=== PATIENT | female | born 1985 | race Caucasian/White ===

== ENCOUNTER 2022-05-16 12:39 | Outpatient (CLI) | payer BC, SELFPAY ==
[2022-05-16 14:02] LABS: Albumin* 4.2 g/dL (3.3-5.0); Chloride* 107 mmol/L (96-114)
[2022-05-16 14:03] LABS: Potassium* 4.7 mmol/L (3.6-5.1); Sodium* 141 mmol/L (135-149)
[2022-05-16 14:05] LABS: Cholesterol* 197 mg/dL (90-199); Creatinine* 0.6 mg/dL (0.5-1.5); Estimated Glomerular Filt Rate 119 ml/min
[2022-05-16 14:06] LABS: Alanine Aminotransferase* 45 U/L (4-35); Alkaline Phosphatase* 56 U/L (40-150); Aspartate Amino Transferase* 47 U/L (12-35); Bilirubin Total* 0.4 mg/dL (0.1-1.5); Blood Urea Nitrogen* 16 mg/dL (5-24); Calcium* 8.7 mg/dL (8.4-10.6); Carbon Dioxide* 26 mmol/L (20-32); Glucose* 111 mg/dL (60-115); HDL Cholesterol* 68 mg/dL (>=50); LDL Cholesterol Calculated 110 mg/dL (<100); Total Protein* 6.8 g/dL (6.0-8.3); Triglycerides* 97 mg/dL (40-149)
== END 2022-05-16 12:40 | disposition home or self-care (01) ==
PROVIDERS: PCP Emergency Medicine; Visit Provider Emergency Medicine
DX: R73.03 Prediabetes (principal); R03.0 Elevated blood-pressure reading, without diagnosis of hypertension; R74.01 Elevation of levels of liver transaminase levels; Z13.6 Encounter for screening for cardiovascular disorders
CPT/HCPCS: 80053; 80061

== ENCOUNTER 2023-06-13 10:48 | Outpatient (CLI) | payer OTHER, SELFPAY ==
--- NOTE | 2023-06-13 11:00 | CRLHL7_ITS ---
For Patients: As a result of the Century Cures Act, medical imaging exams and procedure reports are released immediately into your electronic medical record. You may view this report before your referring provider. If you have questions, please contact your health care provider. Indication: Chronic sinusitis Technique: Noncontrast CT of the paranasal sinuses. Coronal and sagittal reformats. Bone and soft tissue algorithms. Comparison: No relevant comparison studies available at this institution. Findings: Moderate lobulated mucosal thickening throughout the right greater than left sphenoid sinuses, narrowing the bilateral sphenoethmoidal recesses. Minimal scattered mucosal thickening within the inferior maxillary sinuses and left frontal recess. No other significant paranasal sinus mucosal thickening. No air-fluid level. Smooth 2.5 mm rightward nasal septal deviation with shallow bone spur slightly deforming the right inferior turbinate. Small bilateral middle jean lamella. No paradoxical turbinates. Orbits and included intracranial structures are unremarkable for technique. Clear mastoid air cells. No suspicious dental disease or aggressive osseous lesions. No concerning findings identified in the regional soft tissues. IMPRESSION: 1. Moderate lobulated mucosal thickening throughout the right greater than left sphenoid sinuses, narrowing the sphenoethmoidal recesses. 2. Minimal mucosal thickening along the inferior maxillary sinuses and left frontal recess. 3. Mild rightward nasal septal deviation with small bilateral middle jean lamella. Please note that all CT scans at this facility use dose modulation, iterative reconstruction, and/or weight-based dosing when appropriate to reduce radiation dose to as low as reasonably achievable. Dictated by Blanche Alcala MD @ 06/13/2023 1:58:27 PM (Electronically Signed)
== END 2023-06-13 10:49 | disposition home or self-care (01) ==
PROVIDERS: PCP Emergency Medicine; Visit Provider Otolaryngology
DX: J32.9 Chronic sinusitis, unspecified (principal); J32.0 Chronic maxillary sinusitis; J34.2 Deviated nasal septum
CPT/HCPCS: 70486

== ENCOUNTER 2023-07-31 19:14 | Outpatient (CLI) | payer OTHER, SELFPAY ==
--- OUTSIDE RECORDS SUMMARY | 2023-07-31 19:17 | XMS_ITS | Data Portability ---
Author Name Unknown Address [address] [place] [id number] Phone [phone] Organization [place] [facility], Main Office Address [address] [place] [address] Assessment Encounter Date Assessment Date Assessment LastModified by Organization Details LastModified Time 05/29/2022 05/29/2022 1. 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 We discussed the pathology again and the potential that it may change the outcome of adjuvant therapy if this were to be a microcystic adnexal carcinoma Mohs case number M [id number]? 1 4 9 Area cleansed with alcohol. A nerve block was performed with 1% lidocaine with epinephrine. Small amounts of lidocaine were injected into the actual vermilion border during the Mohs day Stage I: No curette debulking performed half a millimeter margin taken to the deep dermis revealing marked inflammation and a few strands consistent with either infiltrative basal cell most likely or possibly desmoplastic trichofolliculoma. I do not see the biphasic pattern of a microcystic adnexal carcinoma. Stage II: Peripheral rim half a millimeter wide abutting the deep dermis revealing small strands and decreasing inflammation along the inferior aspect which would be 6:00 and 5:00 and 7:00. Stage III: No debulking performed peripheral rim taken from 9:00 crossing of the vermilion border to 3:00 half a millimeter margins revealing a few faint strands almost normal collagen developing in this aspect. Stage IV: Another half millimeter taken further into the mucosal region further past the vermilion border. From 9:00 to 3:00 revealing by the last section essentially normal. Collagen with just mild inflammation. Total stages for total sections for final defect 0.8 cm Verbally with photographs reviewed the relatively superficial nature of the Mohs surgery. We discussed potentially excising this to depth and performing a flap versus allowing granulation to occur and reassessing with possible later revision if it does not heal as we help. After reviewing this in great detail in the presence of her who accompanied her during the preoperative consultation we have chosen allowed to granulate. Typewritten, and verbal wound care instructions given follow-up in [place] in 6 weeks Total stages 4 total sections 4, granulation for closure [id number] Not available 05/29/2022 23:39:24 Plan of Treatment Reminders Order Date Submit Date Provider Last Modified By Organization Details Last Modified Time Details Appointments None record ed. Lab None record ed. Referral None record ed. Procedures None record ed. Surgeries None record ed. Imaging None record ed. Medication Orders None record ed. Patient TargetsNo targets recorded. Patient InstructionsNo instructions recorded. Reason for Referral None Reported. Results Created Date Observation Date Name Description Value Unit Range Abnormal Flag LastModifiedBy Organization Detail LastModifiedTime Result Notes None recorded. Medical Equipment None Reported. Medications Name Sig Start Date Stop Date Status Note LastModified by Organization Details LastModified Time amoxicillin 500 mg capsule TAKE 1 CAPSULE BY MOUTH THREE TIMES DAILY FOR 30 DAYS active Not Available Not Available No t Available ondansetron HCl 4 mg tablet TAKE 1 TABLET BY MOUTH EVERY 6 HOURS NEEDED active Not Available Not Available No t Available prednisone 20 mg tablet active Not Available Not Available No t Available penicillin V potassium 500 mg tablet TAKE 1 TABLET BY MOUTH TWICE DAILY FOR 10 DAYS active Not Available Not Available No t Available oseltamivir 75 mg capsule active Not Available Not Availabl e Not Available Ventolin HFA 90 mcg/actuation aerosol inhaler INHALE 2 PUFFS INTO LUNGS EVERY 6 HOURS NEEDED FOR SHORTNESS OF BREATH OR WHEEZING active Not Available Not Available No t Available escitalopram 10 mg tablet TAKE 1 TABLET BY MOUTH ONCE DAILY active Not Available Not Available No t Available Vitals None Recorded Social History None recorded. Functional Status None recorded. Mental Status None recorded. Family History Nothing Reported. Medical History No medical history recorded. Gynecological HistoryNo gynecological history recorded. Obstetrics History GPAL:G 0 P 0 0 0 0 Past Encounters Encounter ID Performer Location Encounter Start Date Encounter Closed Date Diagnosis/Indication [id number] Jhonny Jansen MD Main Office [address] [address] 05/29/2022 11:11:10 06/06/2022 23:29:34 Basal cell carcinoma of lower lip Health Concerns Section Related Observation LastModified by Organization Detai ls LastModified Time None Recorded Concern Status LastModified by Organization Details LastModified Time None Recorded Advance Directives Directive None Recorded Payers Encounter Date Sequence Insurance Name Policy Number Policy Solorzano Covered Member ID Solorzano Member ID Guarantor Name 05/29/2022 1 [id number]MED[place] - [place]MO) [id number] Jeanna Licea [id number] Jeanna Licea Notes Date Note Type Note Provider Name and Address Organization Details Recorded Time 2 text/html HPI Notes: 39-year-old female presents today for Mohs surgery of a biopsy-proven basal cell carcinoma 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 On 2 previous biopsies no differentiation could be obtained It is on the left upper cutaneous lip. Her past medical history family history and social history are unchanged in the interim since her preoperative visit in [place] Jhonny Jansen MD [address] [place], [address], [facility] 06/06/2022 23:28:35 OBGyn Episode No OBEpisode recorded.
--- OUTSIDE RECORDS SUMMARY | 2023-07-31 19:17 | XMS_ITS | Clinical Summary ---
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 0 Active escitalopram oxalate (LEXAPRO) 20 mg tabletIndication s:Anxiety,Depres carito, recurrent (HC) Take 1 Tablet (20 mg) by mouth once daily. 100 Tablet 3 07/30/2023 Active escitalopram oxalate (LEXAPRO) 20 mg tabletIndication s:Anxiety,Depres carito, recurrent (HC) Take 1 Tablet (20 mg) by mouth once daily. 100 Tablet 3 02/28/2023 07/30/2023 Discontinued (*Medication adjustment) Active Problems Problem Noted Date Diagnosed Date Depression, recurrent 01/10/2023 Basal cell carcinoma (BCC) of skin of lip 2022 Overview: Managed by Dermatology. Anxiety 09/28/2017 Resolved Problems Problem Noted Date Diagnosed Date Resolved Date (normal spontaneous vaginal delivery) 11/21/2018 01/10/2023 care and examinat ion of lactating mother 11/21/2018 01/10/2023 Anemia affecting in third trimester 11/21/19 19 01/10/2023 Insulin controlled gestation al diabetes mellitus (GDM) during 09/11/2018 01/11/20 Overview: Needs BPP/NST and growth scan Palpitations 09/28/2017 01/10/2023 Encounters Date Type Department Care Team Description 07/30/2023 Telephone [facility] [address] [place] [address] Paula Melendez MD Medication Management (/escitalopram oxalate (LEXAPRO) 20 mg tablet /) from Last 3 Months Immunizations Name Administration Dates Next Due Influenza RIV4 (Age 18+ Years) PRESERV FREE 05/11 Influenza, IIV4 04/03/2022,06/07/2021,05/13/2018 Tdap 12/09/2020,09/11/2018 Family History Medical History Relation Name Comments Good Health Brother Gerry Ear Disease Daughter 1 Jennifer Recurrent ear i nfections COPD Father Alcoholism Maternal Grandfather Dementia Maternal Grandmother Anxiety disorder Mother Other Mother Vertigo Blindness Paternal Grandfather Hypertension Paternal Grandfather Cancer-breast Paternal Grandmother Cancer-colon No Family History Cancer-ovarian No Family History Relation Name Status Comments Brother Gerry Alive Daughter 1 Jennifer Alive Daughter 2 Deirdre Alive Father (Age 53) Maternal Grandfather Maternal Grandmother Mother Alive Paternal Grandfather Paternal Grandmother Alive Social History Tobacco Use Types Packs/Day Years Used Date Smoking Tobacco: Never Smokeless Tobacco: Never Tobacco Cessation:Counseling Given: Yes Alcohol Use Standard Drinks/Week Comments Yes 0 (1 standard drink = 0.6 oz pure alcohol) 1-2 days a week; 2-4 drinks at a time PHQ-2 Answer Date Recorded PHQ-2 TOTAL SCORE 1 02/28/2023 Social Connections Answer Date Recorded Frequency of Communication with Friends and Fami ly 0 01/10/2023 Financial Resource Strain Answer Date R ecorded Difficulty of Paying Living Expenses 3 01/10/2023 Difficulty of Paying Living Expenses Not on file 01/10/2023 Food Insecurity Answer Date Recorded Worried About Running Out of Food in the Last Ye ar 1 01/10/2023 Transportation Needs Answer Date Record ed Lack of Transportation (Medical) 1 01/10/2023 Housing Stability Answer Date Recorded Unable to Pay for Housing in the Last Year 1 01/10/2023 Sex and Gender Information Value Date Recorded Sex Assigned at Not on file Gender Identity Not on file Sexual Orientation Not on file Obstetrics History Para Term AB IAB SAB Ectopic Multiple Livin g Live Births 3 2 2 0 1 0 0 0 0 2 2 Date Outcome GA Total Labor Labor/2nd/3rd Weight Sex Delivery Anes PTL Diane A1 A5 Name Cl in 06/11 AB ELECTIVE AB 11/21 Term 39w 3d 0h 07m 3.45 kg (7 lb 9.7 oz) F Vag Epidu ral Gabriela ng 6 9 Santi Todd ns Delivery Location:[facility]) 02/01 Term F Vag Gabriela ng Jennifer Last Filed Vital Signs Vital Sign Reading Time Taken Comments Blood Pressure 126/78 02/28/2023 10:52 AM CDT Pulse 63 02/28/2023 10:52 AM CDT Temperature 36.5 ??C (97.7 ??F) 11/23/2018 1 2:04 PM CDT Respiratory Rate 16 11/23/2018 12:0 4 PM CDT Oxygen Saturation 98% 02/28/2023 10: 52 AM CDT Inhaled Oxygen Concentration - - Weight 118.3 kg (260 lb 12.8 oz) 2022 10:52 AM CDT Height 163 cm (5' 4.17) 02/28/2023 10: 52 AM CDT Body Mass Index 44.53 02/28/2023 10:52 AM CDT Plan of Treatment Health Maintenance Due Date Last Done Comments COVID-19 vaccine series ( season) 2023 10/29/2020, 10/08/2020 Influenza for age 9-49 02/09/2023 2, 06/07/2021, 05/26/2020, Additional history exists Pap test for age 21-65 08/05/2023 1, 08/05/2020, 04/12/2018, Additional history exists BMI (ht and wt on same day) for age 18+ 02/29/2024 02/28/2023, 01/10/2023, 01/28/2019, Additional history exists Depression screening for age 12+ 02/29/2024 02/28/2023, 01/10/2023, 01/28/2019, Additional history exists Tetanus booster 12/09/2030 12/09/2020, 09/11/2018 HIV for age 15-65 Completed 04/12/2018 Tdap Completed 12/09/2020, 09/11/2018 Hepatitis C screening for age 18-79 Completed 01/10/2023 Pneumococcal series for age 6-64 Aged Out No longer eligible based on patient's age to complete this topic Advance Directives Latest Code Status on File Code Status Date Activated Date Inactivated Comments Full Code 11/20/2018 6:19 PM 11/22/2018 5:46 PM Care Teams Tape Control 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
--- NOTE | 2023-08-14 12:53 | W.PM.SLEEP ---
Sleep Study Details Details Interpreting Provider: Donell Date of Sleep Study: 07/31/23 Sleep Study Details: STUDY TYPE:? Home unattended ? BMI:? 45.5 ORDERING PROVIDER:? Donell INDICATION:? Concerns about sleep apnea ? SLEEP SUMMARY:? 391.7 minutes monitored RESPIRATORY SUMMARY:? AHI 13, left lateral 4.1, supine 13.7, right lateral 7.3 Low oxygen 78 1.8% of study oxygen less than 90% Snoring 20.9% PERIODIC LIMB MOVEMENTS OF SLEEP:? Not recorded during home study CARDIAC:? Range 51-105, mean 67.6 IMPRESSION:? Mild obstructive sleep apnea RECOMMENDATION: Treatment options include AutoSet CPAP, dental appliance, weight loss and/or airway expansion surgery. If patient is symptomatic would recommend trial of CPAP.
== END 2023-07-31 19:15 | disposition home or self-care (01) ==
PROVIDERS: PCP Emergency Medicine; Visit Provider Otolaryngology
DX: G47.33 Obstructive sleep apnea (adult) (pediatric) (principal)
CPT/HCPCS: 95806

== ENCOUNTER 2023-08-28 08:47 | Outpatient (CLI) | payer OTHER, SELFPAY | END 2023-08-28 08:48 | disposition home or self-care (01) | PROVIDERS: PCP Emergency Medicine; Visit Provider Family Medicine | DX: R74.01 Elevation of levels of liver transaminase levels (principal); R73.03 Prediabetes; E66.9 Obesity, unspecified; Z13.29 Encounter for screening for other suspected endocrine disorder | CPT/HCPCS: 80053; 84443 ==

== ENCOUNTER 2023-09-12 07:09 | Outpatient (CLI) | payer OTHER, SELFPAY ==
--- NOTE | 2023-09-12 07:15 | US_ITS ---
Patient: CHHAYA SHI Facility:?[facility] Patient ID:?[id number] Site Patient ID:?[id number]. Site :?[id number] Study:?US-Abdomen RUQ-09/12/2023 7:50:20 AM Ordering Physician:GENNARO OCONNOR Final Report: INDICATION: Elevation of levels of liver transaminase levels TECHNIQUE: Ultrasound abdomen limited. Sonographic images of the right upper quadrant were obtained using gutierrez-scale and color Doppler images. COMPARISON: None FINDINGS: Liver: Echogenic consistent with fatty infiltration.. No masses. No intrahepatic biliary dilatation. Gallbladder: No stones or sludge. Normal wall thickness. No pericholecystic fluid. Common bile duct: 4 mm. Pancreas: Normal. Right kidney: Normal in size. Normal echotexture and cortex. No suspicious masses, stones, or hydronephrosis. Vasculature: Proximal abdominal aorta and IVC are normal. IMPRESSION: Hepatic steatosis. Dictated by Deion Hernandez MD @ 09/12/2023 12:00:36 PM Signed by:?Deoin Hernandez MD @09/12/2023 12:00:36 PM (Electronic Signature)
== END 2023-09-12 07:10 | disposition home or self-care (01) ==
LOC: US 07:09
PROVIDERS: PCP Family Medicine; Visit Provider Family Medicine
DX: R74.01 Elevation of levels of liver transaminase levels (principal); K76.0 Fatty (change of) liver, not elsewhere classified
CPT/HCPCS: 76705

== ENCOUNTER 2024-09-01 15:38 | Outpatient (CLI) | payer BC, SELFPAY | END 2024-09-01 15:39 | disposition home or self-care (01) | PROVIDERS: PCP Family Medicine; Visit Provider Family Medicine | DX: K76.0 Fatty (change of) liver, not elsewhere classified (principal); Z13.21 Encounter for screening for nutritional disorder; Z13.29 Encounter for screening for other suspected endocrine disorder | CPT/HCPCS: 80053; 80061; 82306; 84443 ==

== ENCOUNTER 2024-10-21 21:06 | Outpatient (CLI) | payer BC, SELFPAY ==
--- NOTE | 2024-10-28 12:35 | W.PM.SLEEP ---
Sleep Study Details Details Interpreting Provider: Donell Date of Sleep Study: 10/21/24 Sleep Study Details: STUDY TYPE:? Hospital-based attended ? BMI:? 45.5 ORDERING PROVIDER:? Donell INDICATION:? Concerned about sleep apnea ? SLEEP SUMMARY:? 342 minutes total sleep time RESPIRATORY SUMMARY:? Mean oxygen awake 93 asleep 92 minimum 80. 16.1 minutes oxygen was between 80 and 88% AHI 10.2 per CMS guideline, 21.1 per rule 1A. Minimal positional differences. PERIODIC LIMB MOVEMENTS OF SLEEP:? Index 11.4, index with arousal 2.6 CARDIAC:? Awake 66, asleep 63. Premature atrial contractions were noted IMPRESSION:? Mild obstructive sleep apnea with significant desaturations. PACs were noted. RECOMMENDATION: Weight loss is recommended. For the obstructive sleep apnea would recommend trial of AutoSet CPAP or a dental appliance.
== END 2024-10-21 21:07 | disposition home or self-care (01) ==
LOC: SLEEP 21:06
PROVIDERS: PCP Family Medicine; Visit Provider Otolaryngology
DX: G47.33 Obstructive sleep apnea (adult) (pediatric) (principal)
CPT/HCPCS: 95810

== ENCOUNTER 2024-12-03 09:21 | Outpatient (CLI) | payer BC, SELFPAY | END 2024-12-03 09:22 | disposition home or self-care (01) | PROVIDERS: PCP Family Medicine; Referring Provider Family Medicine; Visit Provider Family Medicine | DX: K76.0 Fatty (change of) liver, not elsewhere classified (principal); R73.03 Prediabetes; Z79.899 Other long term (current) drug therapy | CPT/HCPCS: 80053; 80061; 82306 ==

== ENCOUNTER 2025-04-30 14:00 | Outpatient (CLI) | payer BC, SELFPAY | END 2025-04-30 14:01 | disposition home or self-care (01) | LOC: NFLDREF 05-06 07:37 | PROVIDERS: PCP Family Medicine; Referring Provider Family Medicine; Visit Provider Family Medicine | DX: K76.0 Fatty (change of) liver, not elsewhere classified (principal); R73.03 Prediabetes; D64.9 Anemia, unspecified | CPT/HCPCS: 80053; 82728 ==